=== PATIENT | female | born 1995 | race Hispanic/Latino ===

== ENCOUNTER 2021-11-07 03:19 | Emergency (ER) | payer BC, OTHER, SELFPAY ==
--- NOTE | ~2021-11-07 | XR_ITS ---
EXAMINATION: XR shoulder RT min 2V INDICATION: Right shoulder pain TECHNIQUE: Four views of the right shoulder are submitted. COMPARISON: None FINDINGS: Normal alignment. No fracture. The glenohumeral joint is unremarkable. The distal clavicle is mildly anterior displaced with respect to the acromion. Soft tissues are unremarkable. IMPRESSION: 1. Mild inferior displacement of the distal clavicle with respect to the acromion. No fracture. Reviewed, dictated and finalized at location B. IMPRESSION: 1. Mild inferior displacement of the distal clavicle with respect to the acromi on. No fracture.
--- NOTE | ~2021-11-07 | XR_ITS ---
EXAMINATION: XR elbow RT min 3V INDICATION: Right elbow pain TECHNIQUE: Four views of the right elbow were obtained. COMPARISON: None available FINDINGS: There is no fracture, dislocation, or subluxation. The bones, soft tissues, and joint space s are normal. IMPRESSION: 1. No acute osseous abnormality. Reviewed, dictated and finalized at location B.
--- NOTE | ~2021-11-07 | XR_ITS ---
EXAMINATION: XR knee RT 3V DATE: 11/07/2021 05:05 INDICATION: Right knee pain TECHNIQUE: Three views of the right knee were obtained. COMPARISON: None. FINDINGS: Alignment is normal. No fracture or osteochondral lesion. There is mild tricompartmental os teoarthritis characterized by tiny marginal osteophytes. No joint effusion/synovitis. Soft tissues a re unremarkable. IMPRESSION: 1. No acute osseous abnormality. Reviewed, dictated and finalized at location B.
[2021-11-07 03:22] VITALS: BP 159/92; PULSE 114; RESP 18; TEMP 36.6; O2SAT 100
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
[2021-11-07] MEDS: TETANUS,DIPHTHERIA,AC PERTUSSIS ADULT (0.5 ML) BOOSTRIX IM (04:29)
[2021-11-07] MEDS: ACETAMINOPHEN 500 MG TABLET 1000 MG PO (04:31)
[2021-11-07 06:08] VITALS: BP 126/86; PULSE 73; RESP 14; O2SAT 99
== END 2021-11-07 06:08 | disposition home or self-care (01) ==
PROVIDERS: Emergency Provider Preventive Medicine Aerospace Medicine
DX: S80.211A Abrasion, right knee, initial encounter (principal); S50.311A Abrasion of right elbow, initial encounter; M25.511 Pain in right shoulder; W18.39XA Other fall on same level, initial encounter; Z23 Encounter for immunization
CPT/HCPCS: 73030; 73080; 73562; 81025; 90471; 90715; 99284; A9270

== ENCOUNTER 2024-01-08 17:37 | Emergency (ER) | payer BC, SELFPAY ==
[2024-01-08 17:48] VITALS: BP 149/92; PULSE 76; RESP 16; TEMP 36.8; O2SAT 100
--- NOTE | 2024-01-08 18:06 | ED_ITS ---
HPI - Female Genitourinary General Chief complaint: Urogenital-Female Stated complaint: Vaginal Problems Time Seen by Provider: 01/08/24 18:06 Source: patient, RN notes reviewed and old records reviewed Mode of arrival: ambulatory Limitations: no limitations History of Present Illness HPI Narrative: 28-year-old female presents to the [facility] with vaginal concerns. Patient reports history of yeast infections. Reports vaginal irritation without urinary frequency, urgency or burning. Patient has a prescription for boric acid given by health counselor. States that she did use it. Was getting better but still having some symptoms. Has had that have Diflucan and Flagyl in the past. Patient also wanted to be tested for STDs. Discussed that we do Trichomonas, chlamydia and gonorrhea. They will take up to 72 hours at this time. Related Data Home Medications Medication Instructions Recorded Confirmed liraglutide 0.6 mg/0.1 mL (18 mg/3 0.6 mg subcut DIRECTED 01/08/24 01/08/24 mL) subcutaneous pen injector (Victoza 3-Evan) metformin 1,000 mg tablet 1,000 mg PO DIRECTED 01/08/24 01/08/24 Allergies Allergy/AdvReac Type Severity Reaction Status Date / Time No Known Allergies Allergy Verified 01/08/24 17:38 Review of Systems Review of Systems: All systems reviewed & are unremarkable except as noted in HPI and below Constitutional: Constitutional: Reports no additional constitutional complaints ENT: Reports system reviewed and no additional complaints, except as documented Cardiovascular: Cardiovascular: Reports no additional cardiovascular complaints, Denies chest pain and Denies dyspnea Respiratory: Respiratory: Reports no additional respiratory complaints, Denies chest congestion, Denies cough and Denies dyspnea Gastrointestinal: Gastrointestinal: Reports no additional gastrointestinal complaints, Denies abdominal pain, Denies nausea and Denies vomiting Genitourinary: Genitourinary: Reports as per HPI Musculoskeletal: Musculoskeletal: Reports no additional musculoskeletal complaints Integumentary/Breasts: Skin/Breast: Reports system reviewed and no additional complaints, except as docu PMFSH Comments At the time of my signature, I reviewed and agree with the nursing past medical, surgical, social, and family history. There is no relevant family history pertinent to the patient complaint. Exam Const: General: cooperative, healthy appearing, comfortable, no acute distress, well developed, alert and well nourished Nutritional Appearance: well nourished Orientation/consciousness: patient oriented x3 Limitations: no limitations HENMT: Head: normal to inspection Ears: hearing grossly normal bilaterally and external ears normal Face/Nose/Sinus: Normal external nose present, normal facial exam and face symmetric Face and sinus: normal facial exam and face symmetric Eyes: General: appearance normal, both eyes and all related structures Alignment and Position: alignment normal Periorbital: periorbital findings normal Neck: Neck: normal visual inspection, full ROM, no lymphadenopathy and no meningeal signs Chest: Chest palpation & inspection: normal inspection of the chest Resp: Effort & Inspection: normal respiratory effort and able to speak in complete sentences Auscultation: clear to auscultation bilaterally, no crackles, no rales, no rhonchi and no wheezes Cardio: Rate: regular rate GI: GI Palp: No abdominal tenderness : General: Yes no CVA tenderness Skin: General skin exam: normal color and no rashes or lesions noted Lesions: no lesions Rashes: no rashes Wounds: no wounds Neuro: General: patient oriented x3, gait normal, tone normal, moves all extremities and no meningeal signs Cognition (Neuro): normal cognition Speech: normal speech Gait exam (Neuro): Normal gait present Extrem: General: normal to inspection, full ROM, capillary refill normal and normal gait Psych: Appearance: grossly normal and well kempt Mental Status: mental status grossly normal Speech and movement: Normal speech and movement present and Clear speech present Affect: normal affect Attitude: cooperative Course Course Level of Care: Express Care Visit Vital Signs Vital signs: Vital Signs Temperature 98.2 F 01/08/24 17:48 Pulse Rate 76 01/08/24 17:48 Respiratory Rate 16 01/08/24 17:48 Blood Pressure 149/92 H 01/08/24 17:48 Pulse Oximetry 100 01/08/24 17:48 Oxygen Delivery Room Air 01/08/24 17:48 Temperature 98.2 F 01/08/24 17:48 Pulse Rate 76 01/08/24 17:48 Respiratory Rate 16 01/08/24 17:48 Blood Pressure 149/92 H 01/08/24 17:48 Pulse Oximetry 100 01/08/24 17:48 Oxygen Delivery Room Air 01/08/24 17:48 Reviewed MDM - Female Genitourinary MDM Narrative Medical decision making narrative: Patient is a very good historian, significant history of chronic [place] infections. Had a prescription for boric acid tablet. Use them. States she did have some improvement but after using M she sometimes has to take Diflucan and develops BV. Will prescribe Flagyl. Patient was concern for STD, discussed that we only test for 3. Encourage patient to follow-up with primary care provider and or health counselor provider which she agreed. Patient with no other symptoms other than vaginal irritation, itching and white discharge Discharge instructions reviewed with patient, as well as provided in writing per nursing staff. The instructions also include specific and strict return/GO TO THE ER as well as f/u information. All questions have been answered, and the patient deny any further questions with discharge and discharge plan. Some parts of this dictation were generated by voice recognition software and may contain typographical and/or grammatical inaccuracies. Differential Diagnosis Differential diagnosis: Likely urinary tract infection, bacterial vaginosis, trichomoniasis and cystitis Lab Data Labs: Lab Results 01/08/24 Range/Units 18:12 C. trachomatis (PCR) Pending N. gonorrhoeae (PCR) Pending T. vaginalis (PCR) Pending Critical Care Time Critical Care Time Critical Care Time: No Discharge Plan Discharge Clinical Impression: Yeast infection Patient Disposition: Home, Self-Care Condition: Stable Instructions: Antibiotic Form, Bacterial Vaginosis (ED), Yeast Infection (ED) Additional Instructions: Today your blood pressure was 149/92 please follow-up with your provider in the next 2 weeks You have been tested for chlamydia, gonorrhea and Trichomonas. Testing can take approximately 72 hours to come back. We will notify you if they are positive You have been treated for both a yeast infection and bacterial vaginitis. Do not drink alcohol Follow-up with health counselor New or worsening symptoms go directly to the emergency room Patient Language: Taiwanese Prescriptions: New fluconazole 150 mg tablet 150 mg PO ONCE Qty: 1 0RF Rx Instructions: as a single dose metronidazole 500 mg tablet 500 mg PO Q12H Qty: 14 0RF No Action metformin 1,000 mg tablet 1,000 mg PO DIRECTED liraglutide [Victoza 3-Evan] 0.6 mg/0.1 mL (18 mg/3 mL) pen injector 0.6 mg SUBCUT DIRECTED Follow-up/Referrals: PHYSICIAN,EMERGENCY COMMUNICATIONS DISPATCHER [Primary Care Provider] - Stand Alone Forms: Work/School Release IP Time of Disposition: 18:15
[2024-01-09 20:09] LABS: Trichomonas Vag PCR NOT DETECTED (NOT DETECTE)
[2024-01-09 20:31] LABS: Chlamydia trachomatis NOT DETECTED (NOT DETECTE); Neisseria gonorrhoeae PCR NOT DETECTED (NOT DETECTE)
== END 2024-01-08 18:20 | disposition home or self-care (01) ==
PROVIDERS: Emergency Provider Nurse Practitioner
DX: B37.9 Candidiasis, unspecified (principal); Z79.4 Long term (current) use of insulin
CPT/HCPCS: 87491; 87591; 87661; 99203; G0463